=== PATIENT | female | born 1995 | race Caucasian/White ===

== ENCOUNTER → 2016-12-17 | Outpatient (CLI) | payer BC ==
--- NOTE | 2016-12-17 12:13 | DIAGNOSTIC IMAGING REPORT ---
ABD/PELVIS NO IV OR ORAL CONT HISTORY: 21 years-old Female R10.9 Right flank painR/o [id number] acute right flank pain x4 weeks with nausea. No history of kidney stone. COMPARISON: None available TECHNIQUE: Multiple axial CT images of the abdomen and pelvis were obtained without contrast. A dose lowering technique was used consistent with the principals of JUS. FINDINGS: Lung bases are clear. No pneumoperitoneum. Imaged inferior cardiac chambers are unremarkable. Evaluation of the solid abdominal organs is limited without the use of IV contrast. The limitations of the study, the liver, spleen, pancreas and adrenal glands are within normal limits. Gallbladder is contracted. Kidneys, ureters and urinary bladder are within normal limits without renal calculi or hydronephrosis. Tampon is noted within the vagina. There is a ring device within the region of the cervix, possibly a contraception device. Uterus and adnexa are unremarkable. The abdominal aorta is normal in both course and caliber. No bulky adenopathy. There is no bowel obstruction. No focal bowel wall thickening. The appendix appears normal within the right lower quadrant. Soft tissues are unremarkable. Bilateral chronic appearing pars defects at L4 without spondylolisthesis. IMPRESSION: 1. No acute intra-abdominal or intrapelvic abnormality identified, specifically no renal calculi or hydronephrosis. 2. Normal appendix. 3. Bilateral chronic appearing pars defects at L4 without spondylolisthesis. The above report was generated using voice recognition software. It may contain grammatical, syntax or spelling errors. Electronically signed by: Rick Negron M.D. 12/17/2016 12:11 PM Dictated Date/Time: 12/17/2016 12:05 PM
[2016-12-17 13:11] LABS: BASO % 0.5 %; BASO ABS # 0.03 K/uL (0-0.2); COMPLETE YES; EOS % 4.6 %; HEMATOCRIT 42.3 % (37-47); IG% 0.2 %; LYMPH % 29.4 %; MEAN CELL VOLUME 82.5 fL (80-100); MEAN CORPUSCULAR HEMOGLOBIN 27.3 pg (25-34); MEAN CORPUSCULAR HGB CONC 33.1 g/dl (32-36); MONO % 7.3 %; PLATELET COUNT 236 K/uL (130-400); RED BLOOD COUNT 5.13 M/uL (4.2-5.4); WHITE BLOOD COUNT 6.46 K/uL (4.8-10.8)
[2016-12-17 13:12] LABS: URINE APPEARANCE CLEAR (CLEAR); URINE BILIRUBIN NEG (NEG); URINE COLOR YELLOW; URINE NITRITE NEG (NEG); URINE SPECIFIC GRAVITY 1.016 (1.000-1.030); UROBILINOGEN NEG (NEG)
[2016-12-17 13:14] LABS: MANUAL MICROSCOPIC REQUIRED? NO; REVIEW REQ? NO
[2016-12-17 13:16] LABS: PREG INTERNAL NEGATIVE QC NEG CLEAR BACKGROUND; PREG INTERNAL POSITIVE QC POS CONTROL LINE
[2016-12-17 13:36] LABS: ALT/SGPT 28 U/L (12-78); AST/SGOT 10 U/L (15-37); BLOOD UREA NITROGEN 14 mg/dl (7-18); BUN/CREATININE RATIO 19.8 (10-20); CARBON DIOXIDE 25 mmol/L (21-32); CHLORIDE 105 mmol/L (98-107); CREATININE 0.72 mg/dl (0.60-1.20); GLUCOSE 78 mg/dl (70-99); POTASSIUM 3.8 mmol/L (3.5-5.1); SODIUM 138 mmol/L (136-145)
[2016-12-17 13:39] LABS: ALB/GLOB RATIO 0.9 (0.9-2); ALKALINE PHOSPHATASE 82 U/L (45-117)
== END | disposition home or self-care (01) ==
LOC: C.CTS 11:51
PROVIDERS: ATTEND Physician Assistant
DX: R10.9 Unspecified abdominal pain (principal)